=== PATIENT | male | born 1985 | race Asian ===

== ENCOUNTER 2023-03-22 13:55 | Emergency (ER) | payer MEDICARE, MEDICAID, SELFPAY ==
[2023-03-22 14:09] VITALS: BP 139/95; PULSE 90; RESP 17; TEMP 36.7; O2SAT 99; BMI 35.4
--- NOTE | 2023-03-22 14:14 | DI.RAD.S_ITS ---
PROCEDURE: XR FINGER RT MIN 2V INDICATIONS: dog bite, nail bed broken TECHNIQUE: AP hand, 2 views of the 4th finger(s) acquired. COMPARISON: None. FINDINGS: Bones: There is a mildly displaced chip fracture seen involving the distal aspect of the distal phalanx of the 4th finger. Soft tissues: Associated soft tissue injury is seen. IMPRESSION: Chip fracture of the distal aspect of the distal phalanx of the 4th finger, with associated soft tissue injury. If there is strong suspicion for developing osteomyelitis, please consider a dedicated MRI without and with contrast for further evaluation (assuming that there is no contraindication to MRI). Dictated by: Phi Beach M.D. on 03/22/2023 at 13:29 Approved by: Phi Beach M.D. on 03/22/2023 at 13:30
--- NOTE | 2023-03-22 14:58 | DI.RAD.S_ITS ---
PROCEDURE: XR SHOULDER LT MIN 2V INDICATIONS: injury TECHNIQUE: 3 views of the shoulder were acquired. COMPARISON: [facility], CR, XR FINGER RT MIN 2V, 03/22/2023, 14:16. FINDINGS: Bones: No acute fractures or dislocations. There is a remote avulsion fracture versus accessory ossicle seen along the superior aspect of the glenoid. No suspicious bony lesions. Visualized ribs appear intact. Soft tissues: No suspicious soft tissue calcifications. IMPRESSION: No acute bony abnormality is seen by plain film. If it would be helpful for clinical management decision making, please consider a dedicated, scheduled shoulder MRI for further evaluation (assuming that there is no contraindication). Dictated by: Phi Beach M.D. on 03/22/2023 at 14:27 Approved by: Phi Beach M.D. on 03/22/2023 at 14:28
--- NOTE | 2023-03-22 15:01 | PC.NURSE ---
Pt reports having two dogs at his home. The animals are mutts, 90lbs each, and up to date on vaccinations. Two days ago patient broke up a fight between the dogs by putting his leg in between them and pulling them away. Pt was bitten on his left, medial thigh through his pant legs and received a puncture wound aproximately 3cm wide with skin flap. Pt states It's because neither of them dogs' nuts have been clipped! They have been dominating each other and fighting. At time of injury patient applied hydrogen peroxide and sprayed antibiotic spray on the wound. Pt did not wash wound which has a bruise, skin flap, and puss. Today the dogs were at it again and pt attempted to rip dogs off of eachother when he was bit on his right 4th digit on his fingernail. Pt also states he dislocated his shoulder this morning while pulling the dogs away from eachother. Pt's left shoulder is able to move, but not full range of motion. radial pulse palpable. Pt reports dislocating both shoulders previously and knowing what real pain is. I have had over 1600 kidney stones in the past 5 years.
[2023-03-22 15:38] VITALS: BP 162/83; PULSE 88; RESP 20; O2SAT 96
[2023-03-22] MEDS: DOXYCYCLINE HYCLATE 100 MG TABLET PO ×3 (15:38→16:23)
--- NOTE | 2023-03-23 13:09 | ED_ITS ---
HPI - Animal Bite <Amy Muñoz PA-C - Last Filed: 03/23/23 13:21> General Chief Complaint: Animal Bite Stated Complaint: inj lt leg/rt/hand/lt shoulder/split up dog fight Time Seen by Provider: 03/22/23 14:24 Source: patient Mode of arrival: Ambulatory History of Present Illness HPI narrative: 37-year-old male presents to the ED for 2 dog bites sustained prior to arrival. Patient states he has 2 dogs age 2 and 6. Dogs are not new tired. They have been fighting for dominance over each other, patient attempted to break up the fight between the 2 dogs, ended up getting bitten twice. The 1st bite was on the left thigh which was 2 days ago. Patient was not seen prior to this for this injury. Patient was also bitten on his right ring finger tip. The nail appears to be broken with the underlying nail bed injury. Patient is also complaining of left shoulder pain, states that it is painful and stiff to move his arm backwards. Patient is concerned that he might have dislocated his shoulder. Patient states that he has had a prior shoulder injury on that shoulder, has dislocated it, that there was a bony injury in the past that might show up on x-ray. Tetanus is up-to-date. Related Data Previous Rx's Medication Instructions Recorded doxycycline hyclate 100 mg tablet 100 mg PO BID 14 days #28 tabs 03/22/23 Allergies Allergy/AdvReac Type Severity Reaction Status Date / Time morphine Allergy Anaphylaxis Verified 03/22/23 14:08 Penicillins Allergy Hallucinati Verified 03/22/23 14:08 ng Sulfa (Sulfonamide AdvReac Vomiting Verified 03/22/23 14:08 Antibiotics) Review of Systems <Amy Muñoz PA-C - Last Filed: 03/23/23 13:21> Constitutional Constitutional: Denies chills, Denies fatigue, Denies fever(s), Denies frequent falls, Denies lethargy and Denies weakness Eyes Eyes: Denies change in vision, Denies eye discharge, Denies irritation and Denies loss of vision ENT Ears, Nose, Mouth, and Throat: Denies change in voice, Denies dizziness, Denies neck pain, Denies sore throat and Denies throat swelling Cardiovascular Cardiovascular: Denies chest pain, Denies irregular heart rhythm, Denies lightheadedness, Denies palpitations, Denies dyspnea, Denies dyspnea on exertion and Denies orthopnea Respiratory Respiratory: Denies cough, Denies dyspnea, Denies dyspnea on exertion and Denies wheezing Gastrointestinal Gastrointestinal: Denies abdominal pain, Denies change in bowel habits, Denies diarrhea, Denies nausea and Denies vomiting Musculoskeletal Musculoskeletal: Denies neck pain and Denies numbness Comments: Right shoulder pain Integumentary/Breasts Skin/Breast: Denies pruritus, Denies erythema, Denies rash and Reports wounds Neurologic Neurologic: Denies behavioral changes, Denies confusion, Denies dizziness, Den ies frequent falls, Denies loss of vision, Denies numbness and Denies weakness Psychiatric Psychiatric: Denies anxiety, Denies behavioral changes, Denies confusion, Denies depression, Denies homicidal ideation and Denies suicidal ideation Endocrine Endocrine: Denies fatigue, Denies flushing and Denies palpitations Hematologic/Lymphatic Hematologic/Lymphatic: Denies easy bruising Allergic/Immunologic Allergic/Immunologic: Denies urticaria, Denies throat swelling and Denies wheezing Patient History <Amy Muñoz PA-C - Last Filed: 03/23/23 13:21> Social History Smoking Status: Current every day smoker Smoking Status: Current every day smoker alcohol intake frequency: holidays/special occasions only Substance Use Type: marijuana Exam <Amy Muñoz PA-C - Last Filed: 03/23/23 13:21> Narrative Exam Narrative: Const General:?cooperative, healthy appearing and comfortable [facility] Head:?normal to inspection Ears:?hearing grossly normal bilaterally Nose:?external nose normal Face and sinus:?normal facial exam and sinuses nontender Mouth:?oral mucosae normal Throat:?posterior oropharynx normal Eyes General:?appearance normal, both eyes and all related structures Neck Neck:?normal visual inspection and no lymphadenopathy noted Resp Effort & Inspection:?normal respiratory effort Auscultation:?clear to auscultation bilaterally Cardio Rate:?regular rate Rhythm:?regular rhythm Integumentary There is a linear breakage to the ring finger nail of the right hand, with underlying nail bed laceration. There is full range of motion of the fingers. Strength and sensation is intact. There is also a wound to the left thigh that appears to be healing, with some signs of surrounding bruising. No discharge. Musculoskeletal No shoulder deformities, bruising noted on exam. Patient exhibits some stiffness and limited range of motion moving his arm backwards. Strength and sensation is intact. Patient is neurovascularly intact. Neuro General:?patient alert, patient awake and patient oriented x3 Initial Vital Signs Initial Vital Signs: Vital Signs Temperature 98.1 F 03/22/23 14:09 Pulse Rate 90 03/22/23 14:09 Respiratory Rate 17 03/22/23 14:09 Blood Pressure 139/95 H 03/22/23 14:09 Pulse Oximetry 99 03/22/23 14:09 Oxygen Delivery Method Room Air 03/22/23 14:09 <Sun Ramirez DO - Last Filed: 03/23/23 13:29> Initial Vital Signs Initial Vital Signs: Vital Signs Temperature 98.1 F 03/22/23 14:09 Pulse Rate 90 03/22/23 14:09 Respiratory Rate 17 03/22/23 14:09 Blood Pressure 139/95 H 03/22/23 14:09 Pulse Oximetry 99 03/22/23 14:09 Oxygen Delivery Method Room Air 03/22/23 14:09 Course <Amy Muñoz PA-C - Last Filed: 03/23/23 13:21> Orders Ordered: Discontinued Medications Doxycycline Hyclate (Doxycycline Hyclate 100 Mg Tablet) 100 mg PO NOW ONE Stop: 03/22/23 15:02 Last Admin: 03/22/23 15:38 Dose: 100 mg Documented By: SPF Doxycycline Hyclate (Doxycycline Hyclate 100 Mg Tablet) 100 mg PO NOW ONE Stop: 03/22/23 16:01 Last Admin: 03/22/23 16:23 Dose: 100 mg Documented By: SPF Doxycycline Hyclate (Doxycycline Hyclate 100 Mg Tablet) 100 mg PO NOW ONE Stop: 03/22/23 16:03 Last Admin: 03/22/23 16:22 Dose: 100 mg Documented By: SPF <DO Derek Steward Last Filed: 03/23/23 13:29> Orders Ordered: Discontinued Medications Doxycycline Hyclate (Doxycycline Hyclate 100 Mg Tablet) 100 mg PO NOW ONE Stop: 03/22/23 15:02 Last Admin: 03/22/23 15:38 Dose: 100 mg Documented By: SPF Doxycycline Hyclate (Doxycycline Hyclate 100 Mg Tablet) 100 mg PO NOW ONE Stop: 03/22/23 16:01 Last Admin: 03/22/23 16:23 Dose: 100 mg Documented By: MALATHI Doxycycline Hyclate (Doxycycline Hyclate 100 Mg Tablet) 100 mg PO NOW ONE Stop: 03/22/23 16:03 Last Admin: 03/22/23 16:22 Dose: 100 mg Documented By: MALTAHI MDM - Animal Bite <Amy Muñoz PA-C - Last Filed: 03/23/23 13:21> [facility] Narrative Medical decision making narrative: 37-year-old male presents to the ED for 2 dog bites sustained prior to arrival. Concern for fracture/dislocation versus wound versus laceration versus other. X-rays of shoulder and finger obtained. Shoulder x-ray shows a bony injury cons istent with patient's prior injuries. No new acute findings. Finger x-ray shows a chip fracture of the distal aspect of the distal phalanx of the 4th finger, with the associated soft tissue injury. Given that the injury is on the hand, caused by a dog bite, extremely prone to infection, will start patient on antibiotics, allow finger injury to heal via secondary intention. The leg injury is 2-day-old and therefore no repair indicated at this time. Patient was given a dose of doxycycline in the ED. on account of it being a new year's holiday and pharmacies being closed, patient was sent home with a few extra doses until the pharmacies open for the rest of his prescription to be filled. Wound care instructions, signs of infection discussed with patient. ED return precautions discussed with patient. Patient verbalized understanding. Medical records reviewed: Yes Discharge Plan Departure Patient Disposition: Home Clinical Impression: Dog bite Qualifiers: Encounter type: initial encounter Qualified Code(s): W54.0XXA - Bitten by dog, initial encounter Finger fracture Qualifiers: Encounter type: initial encounter Finger: ring finger Fracture type: open Phalanx: distal Fracture alignment: displaced Laterality: right Qualified Code( s): S62.634B - Displaced fracture of distal phalanx of right ring finger, initial encounter for open fracture Instructions: DI for Dog Bite Activity Restrictions/Additional Instructions: You were evaluated in the ED today for some dog bites. You have a mildly displaced chip fracture of the ring finger of the right hand. Please keep your wounds clean and dry since animal bites can be very prone to infection. These do not soak your finger or the leg wound in water. You may briefly wash and dry with soap and water. You are being prescribed an antibiotic, please take those as prescribed. Return to the ED if you note signs of infection including worsening redness, pain, swelling, warmth, discharge. Please follow-up with your PCP as soon as possible. Prescriptions: New doxycycline hyclate 100 mg tablet 100 mg PO BID 14 Days Qty: 28 0RF Stand Alone Forms: Patient Portal/API ED Sign-out <Sun Ramirez DO - Last Filed: 03/23/23 13:29> Cosign ED Attending Cosignature Attestation: I was available for consultation.
== END 2023-03-22 16:31 | disposition home or self-care (01) ==
PROVIDERS: Emergency Provider Student in an Organized Health Care Education/Training Program
DX: S62.634B Displaced fracture of distal phalanx of right ring finger, initial encounter for open fracture (principal); S71.152A Open bite, left thigh, initial encounter; M25.512 Pain in left shoulder; W54.0XXA Bitten by dog, initial encounter
CPT/HCPCS: 73030; 73140; 99283